=== PATIENT | male | born 1975 | race African-American/Black ===

== ENCOUNTER 2017-09-24 09:31 | Emergency (ER) | payer MEDICAID ==
[~2017-09-24] VITALS: Ht 188 cm; Wt 77.0 kg
[2017-09-24] MEDS ORDERED: IBUPROFEN 800MG TABLET PO ONE (15:30)
[2017-09-24 16:31] VITALS: BP 125/88
== END 2017-09-24 16:37 | disposition home or self-care (01) ==
LOC: ER 10:04
DX: S62.396A Other fracture of fifth metacarpal bone, right hand, initial encounter for closed fracture (principal); Y04.0XXA Assault by unarmed brawl or fight, initial encounter; Y93.9 Activity, unspecified; Y92.9 Unspecified place or not applicable; F17.200 Nicotine dependence, unspecified, uncomplicated
CPT/HCPCS: 29125; 73130; 99284